=== PATIENT | male | born 1980 | race Caucasian/White ===

== ENCOUNTER 2022-02-27 17:19 | Emergency (ER) | payer MEDICAID ==
--- NOTE | 2022-02-27 20:22 | ED Physician Documentation ---
PD HPI BACK PAIN - Stated complaint Stated Complaint: BACK PX - Chief complaint Chief Complaint: Back Pain - History obtained from History obtained from: Patient - History of Present Illness Timing - onset: How many days ago (2) Timing - duration: Days (2) Timing - details: Abrupt onset (onset of pain with twist and lifting. Continues with pain left lower lumbar that has increased today, with spasms feeling. No radiation to legs. No weakness nor numbness.), Still present (much worse today with stiffness and spasms left lower lumbar.) Location: Lower, Left Quality: Pain, Spasm Associated symptoms: No: Fever, Weakness, Numbness, Incontinent of urine Improves with: Rest. No: Meds Worsened by: Movement, Twisting, Palpation Contributing factors: Lifting, Twisting Similar symptoms before: Has not had sx before Recently seen: Not recently seen Review of Systems Constitutional: denies: Fever, Chills Nose: denies: Rhinorrhea / runny nose, Congestion Throat: denies: Sore throat Respiratory: denies: Cough GI: denies: Abdominal Pain Skin: denies: Rash, Lesions Musculoskeletal: reports: Back pain. denies: Neck pain Neurologic: denies: Focal weakness, Numbness PD PAST MEDICAL HISTORY - Past Medical History Past Medical History: Yes Cardiovascular: Other Respiratory: Other Neuro: None Endocrine/Autoimmune: Type 2 diabetes GI: None : None HEENT: None Musculoskeletal: Other Derm: None Other Past Medical History: LUNG CLOTS SEVERAL EPISODES.... - Past Surgical History Past Surgical History: Yes General: Other - Present Medications Home Medications: Ambulatory Orders Medication Instructions Recorded Confirmed Metformin HCl 500 mg PO DAILY 02/27/22 02/27/22 Oxycodone HCl/Acetaminophen 1 each PO Q6H PRN #14 tablet 02/27/22 [Percocet 5-325 mg Tablet] Warfarin [Coumadin] 7.5 mg PO DAILY 02/27/22 02/27/22 methocarbamoL [Methocarbamol] 750 mg PO BID 02/27/22 02/27/22 tiZANidine [Zanaflex] 4 mg PO Q8H PRN #20 tablet 02/27/22 - Allergies Allergies/Adverse Reactions: Allergies Allergy/AdvReac Type Severity Reaction Status Date / Time sulfamethoxazole Allergy Rash Verified 02/27/22 17:31 [From ] trimethoprim [From Septra] Allergy Rash Verified 02/27/22 17:31 - Social History Does the pt smoke?: No Smoking Status: Never smoker Does the pt drink ETOH?: No Does the pt have substance abuse?: No - Immunizations Immunizations are current?: Yes - POLST Patient has POLST: No PD ED PE NORMAL - Vitals Vital signs reviewed: Yes - General General: Alert and oriented X 3, Well developed/nourished, Other (appears in considerable pain with guarding rom of the low back. ) - Cardiac Cardiac: RRR, No murmur - Respiratory Respiratory: Clear bilaterally - Abdomen Abdomen: Soft, Non tender - Back Back: No spinal TTP, Other (tender left paralumbar low back muscles. Some point tenderness. No redness, rash nor sores. ) Results - Vitals Vitals: Vital Signs - 24 hr 02/27/22 02/27/22 02/27/22 17:32 20:08 20:15 Temperature 37.0 C Heart Rate 110 H Respiratory 22 18 17 Rate Blood Pressure 139/99 H O2 Saturation 95 02/27/22 02/27/22 02/27/22 20:34 20:50 21:20 Temperature Heart Rate Respiratory 16 16 16 Rate Blood Pressure O2 Saturation 02/27/22 02/27/22 21:36 21:42 Temperature Heart Rate 100 Respiratory 17 17 Rate Blood Pressure 133/92 H O2 Saturation 96 Oxygen O2 Source Room air Procedures - General procedure General procedure: trigger point injection at point of focal tenderness left mid lumbar lateral muscle with kenalog and lidocaine. PD MEDICAL DECISION MAKING - ED course Complexity details: considered differential (lumbar strain/pain without red flags on exam/history. ), d/w patient Departure - Departure Disposition: 01 Home, Self Care Clinical Impression: Acute lumbar back pain Condition: Stable Record reviewed to determine appropriate education?: Yes Instructions: ED Spasm Back No Trauma Prescriptions: Oxycodone HCl/Acetaminophen [Percocet 5-325 mg Tablet] 1 each PO Q6H PRN #14 tablet PRN Reason: pain tiZANidine [Zanaflex] 4 mg PO Q8H PRN #20 tablet PRN Reason: Spasms Comments: Heat and gentle stretching and range of motion for the back. Chiropractic or massage can be helpful as well for direct therapy on the muscles. Use Tylenol every 4-6 hours if needed for pain or oxycodone/acetaminophen in place of that if needed for worse pain. Tizanidine muscle relaxant 3 times daily to help with spasms and stiffness. You did have a trigger point injection at the muscle tenderness using lidocaine and a longer acting steroid called triamcinolone. Hopefully that will have an effect as well. Follow-up with your primary if not improved well over the next several days. Activity as tolerated. I transmitted your prescriptions to [facility] pharmacy in [place]. I am prescribing a short course of narcotic pain medication for you. These are potentially dangerous and addictive medications that should be used carefully. These medications may constipate you. Take an [id number] stool softener such as docusate twice daily with plenty of water while taking these medications. If you go 24 hours without a bowel movement, take [id number] MiraLAX, per package instructions. Do not drink or drive while taking these medications. If you received narcotic or sedating medications while in the emergency department do not drive for 24 hours. Store this medication in a safe, secure place and out of reach of children. It is a violation of federal law to give or sell this medication to another person or to use in a manner other than prescribed. The ED will not refill narcotic prescriptions, including prescriptions lost or stolen. You can dispose of unwanted medications at the [facility]'s office or at several pharmacies such as [facility]. Discharge Date/Time: 02/27/22 21:44
[2022-02-27] MEDS ORDERED: KETOROLAC 30 MG/ML VIAL IM STA (20:58)
[2022-02-27] MEDS ORDERED: TRIAMCINOLONE 40 MG/ML VIAL MC STA (20:59)
[2022-02-27] MEDS ORDERED: oxyCODONE 5 MG TABLET PO STA (20:59)
[2022-02-27] MEDS ORDERED: methocarbamoL 500 MG TABLET PO STA (20:59)
[2022-02-27] MEDS ORDERED: oxyCODONE/ACET 5/325 Prepack 4 PO STA (20:59)
[2022-02-27 21:37] VITALS: BP 133/92
== END 2022-02-27 21:44 | disposition home or self-care (01) ==
LOC: ED 17:19
DX: M54.59 Other low back pain (principal); E11.9 Type 2 diabetes mellitus without complications
CPT/HCPCS: 20552; 96372; 99282; 99283; A9270